=== PATIENT | female | born 1965 | race Caucasian/White ===

== ENCOUNTER 2018-11-08 21:28 | Emergency (ER) | payer BC ==
[~2018-11-08] VITALS: Ht 167.6 cm; Wt 68.0 kg
[2018-11-08 21:48] VITALS: BP 147/67
== END 2018-11-08 22:48 | disposition home or self-care (01) ==
LOC: ER 21:30
DX: M70.9 Unspecified soft tissue disorder related to use, overuse and pressure (principal); F41.9 Anxiety disorder, unspecified; F17.200 Nicotine dependence, unspecified, uncomplicated; Z88.0 Allergy status to penicillin; Z88.2 Allergy status to sulfonamides; Y92.89 Other specified places as the place of occurrence of the external cause